=== PATIENT | male | born 1975 | race Caucasian/White ===

== ENCOUNTER 2017-05-13 11:33 | Emergency (ER) | payer BC, OTHER ==
[2017-05-13 11:38] VITALS: BP 143/87; PULSE 70; TEMP 97.6; BMI 27.9
--- NOTE | 2017-05-13 12:30 | PDOC ---
History of Present Illness - General Chief Complaint: Injury Stated Complaint: FALL/ BACK PAIN Time Seen by Provider: 05/13/17 11:49 History Source: Patient Exam Limitations: No Limitations - History of Present Illness Initial Comments: 05/13/17 12:27 Came for evaluation of multiple injuries incurred after falling down one flight of stairs yesterday. States tumbled head over striking left knee on post and colliding with wall with his head. States had positive LOC for unknown amount of time, states heard the fall and was able to rouse him. States did not think had significant injury but also felt dizzy and mildly disoriented yesterday, "I don't think I made the best decisions". States he feels thinking is clear however feels a little scattered and some dizziness. He shouldn't denies nausea or vomiting, denies any abdominal pain or injury, denies any drainage from nose or mouth. Shoulder, Posterior aspect. Has history of a scapular fracture to same side some years ago that was completely mended. Denies chest pain or palpitations, denies shortness of breath or difficulty breathing. Denies any abdominal pain, bloating or bruising. Also complains of pretibial pain but states feels well to walk. Denies numbness tingling to hands or feet, denies any neck pain. 05/13/17 20:12 Occurred: reports: yesterday Severity: reports: moderate, severe Pain Location: reports: back, head, lower extremity (left leg), upper extremity (right shoulder) Modifying Factors: improves with: None Loss of Consciousness: brief (seconds) (positive LOC but unclear as to length of time) Associated Symptoms (Fall): lightheadedness Past History - Travel Traveled outside of the country in the last 30 days: No Close contact w/someone who was outside of country & ill: No - Past Medical History Allergies/Adverse Reactions: Allergies Allergy/AdvReac Type Severity Reaction Status Date / Time No Known Allergies Allergy Verified 05/13/17 11:38 Home Medications: Ambulatory Orders No Home Medications 0 dose .ROUTE UTDICT 04/17/12 Oxycodone HCl/Acetaminophen [Percocet 5-325 mg Tablet -] 1 - 2 tab PO Q4H PRN # 10 tablet MDD 4 05/13/17 Asthma: Yes COPD: No - Suicide/Smoking/Psychosocial Hx Smoking Status: No Smoking History: Never smoked Number of Cigarettes Smoked Daily: 0 Information on smoking cessation initiated: No Hx Alcohol Use: No Drug/Substance Use Hx: No Substance Use Type: None Trauma Specific PMHX - Complaint Specific PMHX Back Injury: Yes Neck Injury: No Review of Systems - Review of Systems Able to Perform ROS?: Yes Is the patient limited Trin[place]adian proficient: Yes Constitutional: Yes: Symptoms Reported, See HPI, Loss of Appetite, Malaise HEENTM: Yes: See HPI. No: Symptoms Reported Respiratory: Yes: See HPI, Other (plaints of chest wall and right shoulder pain) . No: Symptoms reported, Cough Cardiac (ROS): No: Symptoms Reported ABD/GI: Yes: See HPI. No: Symptoms Reported, Diarrhea, Nausea, Vomiting, Abdominal cramping (or bruising to abdomen) : Yes: See HPI. No: Symptoms Reported, Hematuria Musculoskeletal: Yes: Symptoms Reported, See HPI, Joint Pain (left pretibial,), Muscle Pain Integumentary: Yes: Symptoms Reported, See HPI, Bruising Neurological: Yes: Symptoms reported, See HPI, Headache. No: Numbness, Paresthesia All Other Systems: Reviewed and Negative *Physical Exam - Vital Signs Last Vital Signs Temp Pulse Resp BP Pulse Ox 97.6 F 70 18 143/87 100 05/13/17 11:35 05/13/17 11:35 05/13/17 11:35 05/13/17 11:35 05/13/17 11:35 - Physical Exam General Appearance: Yes: Appropriately Dressed, Apparent Distress, Moderate Distress HEENT: positive: MARGOT, Normal ENT Inspection, Normal Voice, TMs Normal, Pharynx Normal, Nasal Congestion. negative: Rhinorrhea, Sinus Tenderness Neck: positive: Trachea midline, Supple, Other (no C-spine tenderness crepitus or any midline tenderness. Patient denies any issue with neck). negative: Tender, Lymphadenopathy (R), Lymphadenopathy (L) Respiratory/Chest: positive: Chest Tender (tenderness along posterior aspect of chest primarily scapular and upper right chest wall posteriorly. No crepitus or step-offs, no subcutaneous emphysema), Lungs Clear, Normal Breath Sounds. negative: Respiratory Distress, Decreased Breath Sounds, Rhonchi Cardiovascular: positive: Regular Rhythm Gastrointestinal/Abdominal: positive: Normal Bowel Sounds, Soft. negative: Tender, Protuberent, Distended, Guarding, Rebound, Hepatomegaly, Spleenomegaly ( no bruising or distention noted) Musculoskeletal: negative: Vertebral Tenderness Extremity: positive: Normal Capillary Refill, Normal Inspection, Tender, Swelling, Other (left knee intact with multiple patella, no tenderness reproduced along the medial or lateral aspect. Negative ballottement. Able to flex and extend past 90 without tenderness reproduced. Has some mild pretibial tenderness with some bruising, however no crepitus or step-offs. Neurovascular intact distal to injury). negative: Normal Range of Motion, Calf Tenderness Integumentary: positive: Normal Color Neurologic: positive: call person II-XII NML intact, Fully Oriented, Alert, Normal Mood/ Affect (limited range of motion), Normal Response, Motor Strength 5/5 Progress Note - Progress Note Progress Note: Multitrauma with LOC and head injury. We'll CAT scan shoulder and head to rule out significant pathology. X-ray of left knee and analyzed urinalysis for any kidney issue, medicated with Toradol 60 mg IM for pain relief while waiting for reports Medical Decision Making - Medical Decision Making 05/13/17 multiple x-ray reports red noting multiple injuries including right scapular fracture, T5 fracture, and third rib fracture with no pneumothorax. Knee x-ray reveals questionable knee/patellar injury however clinically does not correlate therefore probable over read of questionable patellar fracture. Patient is ambulatory without any knee issue. Understands will follow up with PMD tomorrow, and given reports of x-ray readings. Understands will need to be cleared by department physician before return to work. Given 10 Percocet tablets prescription and encouraged to rest, ice 05/13/17 20:15 *DC/Admit/Observation/Transfer Diagnosis at time of Disposition: Head injury with loss of consciousness, Multiple contusions Rib fractures Qualifiers: Encounter type: initial encounter Rib fracture type: single rib Fracture type: closed Laterality: right Qualified Code(s): S22.31XA - Fracture of one rib, right side, initial encounter for closed fracture Thoracic spine fracture Qualifiers: Encounter type: initial encounter Thoracic vertebra fracture level: T5 Fracture type: closed Fracture morphology: burst- stable Qualified Code(s): S22.051A - Stable burst fracture of T5-T6 vertebra, initial encounter for closed fracture Scapula fracture Qualifiers: Encounter type: initial encounter Scapula location: unspecified part of scapula Fracture type: closed Laterality: right Qualified Code(s): S42.101A - Fracture of unspecified part of scapula, right shoulder, initial encounter for closed fracture - Discharge Dispostion Disposition: HOME Condition at time of disposition: Stable Admit: No - Prescriptions Prescriptions: Oxycodone HCl/Acetaminophen [Percocet 5-325 mg Tablet -] 1 - 2 tab PO Q4H PRN # 10 tablet MDD 4 PRN Reason: Pain - Referrals Referrals: Shante Fortune MD [Primary Care Provider] - - Patient Instructions Printed Discharge Instructions: DI for Rib Fracture, DI for Vertebral Fracture , DI for Closed Head Injury Additional Instructions: Rest, no strenuous lifting or heavy activity until cleared by physician ice to shoulder, knee, chest wall. Drink lots of fluids, keep well-hydrated May use ibuprofen 2 tablets every 6 hours as needed for inflammation and pain One or 2 tablets every 6-8 hours as needed for severe pain, understanding will make dizzy and sleepy With private physician in one to 2 days Eating lately to emergency department for worsened pain, problems breathing, fevers, or other - Post Discharge Activity Forms/Work/School Notes: Back to Work
[2017-05-13 12:47] LABS: URINE APPEARANCE CLEAR; URINE BILIRUBIN NEGATIVE (<2.0 mg/dL); URINE BLOOD NEGATIVE (NEGATIVE); URINE COLOR YELLOW; URINE GLUCOSE (UA) 1+ (NEGATIVE); URINE KETONE NEGATIVE (NEGATIVE); URINE LEUK ESTERASE NEGATIVE (NEGATIVE); URINE NITRITE NEGATIVE (NEGATIVE); URINE PROTEIN NEGATIVE (NEGATIVE)
[2017-05-13] MEDS ORDERED: KETOROLAC TROMETHAMINE 60 MG/2 ML VIAL ONE (13:52)
[2017-05-13] MEDS ORDERED: KETOROLAC TROMETHAMINE 60 MG/2 ML VIAL IM ONE (14:44)
== END 2017-05-13 15:37 | disposition home or self-care (01) ==
LOC: JERFT 11:33
PROC: 3E0233Z Introduction of Anti-inflammatory into Muscle, Percutaneous Approach (ICD-10-PCS; principal; 2017-05-13)
DX: S22.31XA Fracture of one rib, right side, initial encounter for closed fracture (principal); S22.051A Stable burst fracture of T5-T6 vertebra, initial encounter for closed fracture; S42.101A Fracture of unspecified part of scapula, right shoulder, initial encounter for closed fracture; S09.90XA Unspecified injury of head, initial encounter; R55 Syncope and collapse; T14.8XXA Other injury of unspecified body region, initial encounter; W10.9XXA Fall (on) (from) unspecified stairs and steps, initial encounter; Y93.89 Activity, other specified; Y92.9 Unspecified place or not applicable
CPT/HCPCS: 70450-TC; 73200-TC-RT; 73562-TC-LT-FY; 81003; 99281-25